=== PATIENT | male | born 1950 | race African-American/Black ===

== ENCOUNTER 2018-06-27 06:06 | Day surgery (SDC) | payer OTHER ==
[2018-06-26 10:11] VITALS: BMI 28.0
[2018-06-27] MEDS ORDERED: MIDAZOLAM HCL 2 MG/2 ML SINGLE DOSE VIAL ONE (07:30)
[2018-06-27] MEDS ORDERED: PROPOFOL 20 ML ONE (07:30)
[2018-06-27] MEDS ORDERED: LIDOCAINE HCL/PF 2% SDV 5ML VIAL ONE (07:30)
[2018-06-27] MEDS ORDERED: ONDANSETRON 4 MG/2 ML VIAL ONE (07:53)
[2018-06-27] MEDS ORDERED: DEXAMETHASONE SOD PHOSPHATE 4 MG/1 ML VIAL ONE (07:53)
[2018-06-27] MEDS ORDERED: KETOROLAC TROMETHAMINE 30 MG/1 ML VIAL ONE (08:04)
[2018-06-27] MEDS ORDERED: FUROSEMIDE 40 MG/4 ML INJECTABLE VIAL ONE (08:14)
[2018-06-27] MEDS ORDERED: oxyCODONE HCL 5 MG TABLET PO PRN (08:32)
--- NOTE | 2018-06-27 08:33 | OP ---
Operative Note - Note: Operative Date: 06/27/18 Pre-Operative Diagnosis: left renal pelvic mass Operation: cysto/left URS/bx/stent Findings: as above Post-Operative Diagnosis: Same as Pre-op Surgeon: Pawan Posey Anesthesiologist/LOG RAFT WORKER: Krzysztof De Anda Anesthesia: General Specimens Removed: bx Estimated Blood Loss (mls): 5 Drains & Tubes with Location: 7fr, 24cm Operative Report Dictated: Yes
[2018-06-27] MEDS ORDERED: ONDANSETRON 4 MG/2 ML VIAL IVPUSH PRN (08:36)
[2018-06-27] MEDS ORDERED: PROMETHAZINE HCL 25 MG/1 ML VIAL IVPUSH PRN (08:36)
[2018-06-27] MEDS ORDERED: ACETAMINOPHEN INJECTION 100 ML IVPB ONE (08:37)
[2018-06-27] MEDS ORDERED: ELECTROLYTE-148 SOLN 1,000 ML IV SCH (08:45)
[2018-06-27] MEDS ORDERED: LACTATED RINGERS SOLUTION 1,000 ML IV SCH (08:45)
[2018-06-27] MEDS ORDERED: ACETAMINOPHEN 1000 MG/100 ML VIAL (NON FORMULARY) IVPB ONE (09:00)
--- NOTE | 2018-06-27 09:38 | OP ---
DATE OF OPERATION: DATE OF DICTATION: 06/27/2018 PREOPERATIVE DIAGNOSIS: Left renal pelvic mass. POSTOPERATIVE DIAGNOSIS: Left renal pelvic mass. PROCEDURE PERFORMED: Cystoscopy, retrograde pyelogram, ureteroscopy, biopsy of mass, stent placement. SURGEON: Elis Montanez MD INDICATIONS: The patient is a 67-year-old male with metastatic, resistant prostate cancer who was worked up for hematuria and noted to have a left renal pelvic mass on CT scan. He was taken for diagnostic ureteroscopy and biopsy. The risks, benefits and alternatives were discussed. DESCRIPTION OF PROCEDURE: The patient was taken to the OR and placed supine on the table. After cardiac monitoring was administered, general anesthesia was established. He was prepped and draped in the dorsal lithotomy position. He was given 500 mg of Levaquin. The cystoscope was inserted into the urethra without difficulty and into the bladder. Bilateral ureteral orifices were seen in their normal anatomic position. No tumors were noted in the bladder. The left ureteral orifice was intubated. Contrast was injected for retrograde pyelogram. There was no hydronephrosis but a filling defect in the upper portion of the calices. A guidewire was advanced, and over the guidewire a dual-lumen catheter was advanced, and then a second guidewire was advanced. Over the second wire, a functional ureteroscope was advanced into the kidney. The right kidney was inspected. There was a papillary tumor involving the upper pole of the kidney. A biopsy was taken with the Piranha biopsy forceps and sent to Pathology for analysis. The tumor was approximately 2 to 3 cm in maximum dimension. After ureteroscopy, the ureteroscope was then removed. The entire ureter was inspected. No tumors were noted in the ureter. Over the remaining guidewire, a 7-Macanese 24-cm double pigtail stent was then advanced in monorail fashion. Fluoroscopy confirmed the stent to be in good position. The patient was awoken from anesthesia and transferred to the recovery room in stable condition. There were no complications. Estimated blood loss was minimal. ELIS MONTANEZ M.D. [id number]
[2018-06-27 11:56] VITALS: BP 126/65; PULSE 87; TEMP 97.9
--- NOTE | 2018-06-30 15:29 | PATH ---
Surgical Pathology Report Patient Name: RENAY LLANOS Med. Rec. #: [id number] /Age/Gender: 1950 (Age: 67) / M Account: [id number] Location: [facility] Taken: 06/27/2018 Received: 06/27/2018 Reported: 06/30/2018 Physicians: Pawan Posey M.D. Specimen(s) Received LEFT RENAL PELVIC KIDNEY MASS Clinical History Renal mass Rule out transitional cell carcinoma Final Diagnosis KIDNEY, LEFT, RENAL PELVIS, MASS, BIOPSY: PREDOMINANTLY DENUDED PAPILLARY FRAGMENTS WITH MARKED HEMORRHAGE. SEPARATE DETACHED FRAGMENTS OF UROTHELIUM. Comment: Scant urothelium identified shows no significant cytologic atypia. Limited biopsy, cannot fully exclude the possibility of a papillary urothelial neoplasm. Suggest clinical and cystoscopy correlation. Electronically Signed Mandy Robb M.D. Gross Description Received in formalin, labeled "biopsy of left renal pelvic kidney mass," is a brown, irregular portion of soft tissue measuring 0.1 cm. in greatest dimension. The specimen is submitted in toto in one cassette. 06/27/2018
== END 2018-06-27 12:00 | disposition home or self-care (01) ==
LOC: JASU-SURG 06:06
PROVIDERS: ATTEND Urology
PROC: 0T778DZ Dilation of Left Ureter with Intraluminal Device, Via Natural or Artificial Opening Endoscopic (ICD-10-PCS; 2018-06-27)
PROC: 0TB18ZX Excision of Left Kidney, Via Natural or Artificial Opening Endoscopic, Diagnostic (ICD-10-PCS; principal; 2018-06-27 07:30)
DX: D30.02 Benign neoplasm of left kidney (principal); C61 Malignant neoplasm of prostate
CPT/HCPCS: 76000-TC-FY; 88305-TC; 94760; J0131